=== PATIENT | male | born 1990 | race Caucasian/White ===

== ENCOUNTER 2018-03-18 17:09 | Inpatient (IN) | payer OTHER ==
[~2018-03-18] VITALS: Ht 180.3 cm; Wt 78.2 kg
[2018-03-19 01:15] VITALS: BP 141/81
[2018-03-19 07:47] VITALS: BP 137/69
[2018-03-19 15:28] VITALS: BP 151/69
[2018-03-19 18:42] VITALS: BP 145/75
[2018-03-20 05:24] VITALS: BP 140/70
[2018-03-20 07:29] VITALS: BP 111/73
[2018-03-20 15:41] VITALS: BP 164/77
[2018-03-20 18:36] VITALS: BP 137/74
[2018-03-21 07:28] VITALS: BP 125/59
[2018-03-21 15:55] VITALS: BP 155/75
[2018-03-21 18:29] VITALS: BP 147/64
[2018-03-22 08:05] VITALS: BP 136/65
[2018-03-22 15:38] VITALS: BP 160/71
[2018-03-23 08:00] VITALS: BP 124/63
[2018-03-23] MEDS ORDERED: HYDROXYZINE PAM25 MG PO (08:57)
[2018-03-23] MEDS ORDERED: PRAZOSIN HCL1 MG PO (08:57)
[2018-03-23] MEDS ORDERED: SERTRALINE HCL100 MG PO (08:57)
[2018-03-23] MEDS ORDERED: DESYREL100 MG PO (08:57)
== END 2018-03-23 13:05 | disposition home or self-care (01) | DRG 882 ==
LOC: 1WEST 17:09 → ENRESERV 17:09 → 1WEST 03-19 00:53
DX: F43.10 Post-traumatic stress disorder, unspecified (principal); F10.20 Alcohol dependence, uncomplicated; F33.2 Major depressive disorder, recurrent severe without psychotic features; F43.23 Adjustment disorder with mixed anxiety and depressed mood; S11.91XD Laceration without foreign body of unspecified part of neck, subsequent encounter; X78.1XXD Intentional self-harm by knife, subsequent encounter; F41.9 Anxiety disorder, unspecified
CPT/HCPCS: 97150 GO; 97165 GO; Q0177